=== PATIENT | male | born 1985 | race Caucasian/White ===

== ENCOUNTER 2018-01-05 09:25 | Emergency (ER) | payer OTHER ==
[2018-01-05] MEDS ORDERED: Lidocaine 1% (PF) 30 ML VIAL ONE (09:33)
[2018-01-05] MEDS ORDERED: Adacel (T-DAP) 0.5 ML VIAL ONE (09:41)
[2018-01-05] MEDS ORDERED: Bacitracin Zinc 1 Packet ONE (10:20)
== END 2018-01-05 10:29 | disposition home or self-care (01) ==
LOC: ERS 09:25
DX: S61.215A Laceration without foreign body of left ring finger without damage to nail, initial encounter (principal); W26.0XXA Contact with knife, initial encounter
CPT/HCPCS: 12001; 90471; 90715; J2001

== ENCOUNTER 2018-08-05 08:11 | Outpatient (CLI) | payer BC ==
--- NOTE | 2018-08-05 10:00 | MRI ---
MRI BRAIN WITHOUT CONTRAST: Date: 08/05/18 HISTORY: Headache, nausea, vascular headache not elsewhere classified. FINDINGS: There is artifact due to dental braces. FINDINGS: No definite restricted diffusion is seen. No evidence of infarct, hemorrhage, midline shift, or abnor mal extra-axial fluid collections are noted. The ventricular size is normal and the basilar cisterns are patent. No signal abnormalities are seen on the highly sensitive FLAIR images. No tonsillar herni ation is seen. There is minimal mucosal disease in the paranasal sinuses. IMPRESSION: No evidence of acute intracranial process. POS: [facility]
== END 2018-08-05 08:12 | disposition home or self-care (01) ==
LOC: MRI 08:11
PROVIDERS: ATTEND Family Medicine
DX: G44.1 Vascular headache, not elsewhere classified (principal)
CPT/HCPCS: 70551

== ENCOUNTER 2018-09-20 09:14 | Emergency (ER) | payer BC ==
--- NOTE | 2018-09-20 10:52 | RAD ---
LUMBAR SPINE THREE VIEWS: History: Injury, left low back pain. FINDINGS/IMPRESSION: No fracture, subluxation, or bony destruction is seen. A transitional vertebra is seen. POS: [facility]
== END 2018-09-20 11:45 | disposition home or self-care (01) ==
LOC: ERS 09:14
DX: S39.012A Strain of muscle, fascia and tendon of lower back, initial encounter (principal); E78.5 Hyperlipidemia, unspecified; F41.9 Anxiety disorder, unspecified; F17.210 Nicotine dependence, cigarettes, uncomplicated; Z79.899 Other long term (current) drug therapy; X50.9XXA Other and unspecified overexertion or strenuous movements or postures, initial encounter
CPT/HCPCS: 72100

== ENCOUNTER 2018-09-27 06:40 | Outpatient (CLI) | payer BC ==
--- NOTE | 2018-09-27 08:31 | ULT ---
ABDOMINAL ULTRASOUND: HISTORY: Abdominal pain. FINDINGS: The gallbladder has a normal sonographic appearance. No evidence of gallstones. The common duct is of normal caliber, measured at 3 mm. The liver is mildly prominent in size, measuring 19 cm. No foc al liver mass. Mild increased liver echogenicity is noted. The spleen is unremarkable. The pancrea s is mostly obscured but appears unremarkable as visualized. The visualized aorta and IVC are unrema rkable. Both kidneys are imaged and appear unremarkable. IMPRESSION: Borderline hepatomegaly. Abdominal ultrasound otherwise unremarkable. POS: [facility]
== END 2018-09-27 06:41 | disposition home or self-care (01) ==
LOC: BICULT 06:40
PROVIDERS: ATTEND Family Medicine
DX: R10.84 Generalized abdominal pain (principal)
CPT/HCPCS: 76700